=== PATIENT | female | born 1975 | race Caucasian/White ===

== ENCOUNTER 2019-03-20 19:10 | Emergency (ER) | payer SELFPAY ==
[~2019-03-20] VITALS: Ht 160 cm; Wt 79.9 kg
[~2019-03-20 19:10] MED LIST: AMOX500C2 PO; IBUP-1542 PO
[2019-03-20 19:23] VITALS: Ht 160 cm; Wt 79.9 kg
[2019-03-20] MEDS ORDERED: FLUC150T PO (21:52)
[2019-03-20] MEDS ORDERED: METR500T PO (21:52)
--- NOTE | 2019-03-20 21:52 | ERD ---
ER Documentation Chief Complaint Chief Complaint vaginal discharge x4 days. no urinary symptoms/pain/bleeding HPI Patient is a 43 years old female with no known PMHx presenting to the clinic for vaginal discharge with odor and cheese texture x 4 days. Patient admits to using shampoo to wash her vagina. Patient also complains of urinary frequency x few months. Patient denies fever, chills, vaginal pruritus, abdominal pain, diarrhea, bloating, dysuria, bladder fullness. Patient denies taking OTC medication. ROS All systems reviewed and are negative except as per history of present illness. Medications Home Meds Active Scripts Fluconazole* (Diflucan*) 150 Mg Tablet, 150 MG PO ONCE, #1 TAB Prov:ZANE JACOBS PA-C 03/20/19 Metronidazole* (Flagyl*) 500 Mg Tablet, 500 MG PO TID for 7 Days, TAB Prov:ZANE JACOBS PA-C 03/20/19 Ibuprofen* (Ibuprofen*) 600 Mg Tablet, 600 MG PO Q6, #15 TAB Prov:SHAYY ESPINOSA MD 06/12/16 Amoxicillin* (Amoxicillin*) 500 Mg Cap, 500 MG PO TID for 10 Days, #30 CAP Prov:SHAYY ESPINOSA MD 06/12/16 Allergies Allergies: Coded Allergies: No Known Allergy (Unverified , 03/20/19) PMhx/Soc Medical and Surgical Hx: pt denies Medical Hx, pt denies Surgical Hx History of Surgery: No Anesthesia Reaction: No Hx Neurological Disorder: No Hx Respiratory Disorders: No Hx Cardiac Disorders: No Hx Psychiatric Problems: No Hx Miscellaneous Medical Probl: No Hx Alcohol Use: No Hx Substance Use: No Hx Tobacco Use: No Smoking Status: Never smoker FmHx Family History: No diabetes, No coronary disease, No other Physical Exam Vitals Vital Signs Date Temp Pulse Resp B/P (MAP) Pulse Ox O2 O2 Flow FiO2 Time Delivery Rate 03/20/19 97.8 101 16 132/70 98 19:23 (90) Physical Exam Const: No acute distress Head: Atraumatic Eyes: Normal Conjunctiva Resp: Clear to auscultation bilaterally Cardio: Regular rate and rhythm, no murmurs Abd: Soft, non tender, non distended. Normal bowel sounds Skin: No petechiae or rashes Back: No midline or flank tenderness Neur: Awake and alert Psych: Normal Mood and Affect Results 24 hrs Laboratory Tests Test 03/20/19 22:04 Urine Color YELLOW Urine Clarity SLIGHTLY CLOUDY Urine pH 7.0 Urine Specific [place] 1.024 Urine Ketones NEGATIVE mg/dL Urine Nitrite NEGATIVE mg/dL Urine Bilirubin NEGATIVE mg/dL Urine Urobilinogen NEGATIVE mg/dL Urine Leukocyte Esterase NEGATIVE [place] Urine Microscopic RBC 17 /HPF Urine Microscopic WBC 2 /HPF Urine Squamous Epithelial Cells FEW /HPF Urine Bacteria FEW /HPF Urine Hemoglobin NEGATIVE mg/dL Urine Glucose NEGATIVE mg/dL Urine Total Protein NEGATIVE mg/dl Procedures/MDM Patient was seen and evaluated for vaginal discharge (bacterial vaginosis vs trichomoniasis). Urinalysis is unremarkable. Patient is stable and ready for discharge. F/U with PCP. Patient was advised to avoid using shampoo or soap to wash vagina; only use water. Departure Diagnosis: Primary Impression: Vaginal discharge Condition: Stable Patient Instructions: Trichomonas Vaginalis (Discharge) Referrals: [facility] Additional Instructions: Paciente aconseja volver a Departamento de urgencias inmediatamente para sntomas nuevos o que empeoran . Paciente aconseja posteriores con el PCP en 2-3 jimenez . Paciente verbaliza la comprehensin y est de acuerdo con el tratamiento y el curso de accin. Si el paciente no tiene ninguna de atencin primaria pueden seguir con [facility] [address] [place] [address] o [facility] + [address] [address] ZANE JACOBS PA-C Mar 20, 2019 21:52
[2019-03-20 22:33] VITALS: BP 121/59; PULSE 84; RESP 18
== END 2019-03-20 22:34 | disposition home or self-care (01) ==
LOC: FTE 19:10
DX: N89.8 Other specified noninflammatory disorders of vagina (principal)
CPT/HCPCS: 81001; 81003; 99283